=== PATIENT | male | born 1935 | race Caucasian/White ===

== ENCOUNTER 2018-05-01 12:29 | Inpatient (IN) | payer OTHER ==
[~2018-05-01] VITALS: Ht 165.1 cm; Wt 92.1 kg
--- NOTE | ~2018-05-01 | HC ---
[facility] [place] [address] CONSULTATION Name: RUDY MEDEL Room #: 451-P ADM IN M.R.#: [id number] Admission: 05/01/18 Attend Phys: Kanu Gomez MD Discharge: Date of : 33 Report #: [id number] THIS REPORT FOR: //name// CC: Kanu Lantigua DATE OF SERVICE: 05/02/2018 INFECTIOUS DISEASES CONSULTATION REASON FOR CONSULTATION: I was asked to evaluate concerning fever and syncopal episode. HISTORY OF PRESENT ILLNESS: The patient is an 82-year-old admitted to the Emergency Room after a 4-day history of cough and low-grade fever. He had mild pharyngitis symptoms. His son and grandson had similar symptoms before he became ill. His whom he lives with was asymptomatic. He has had temperature up to 102 degrees. While in the outpatient clinic, he had a syncopal episode. No injury. No seizure activity. He presented then to the Emergency Room for further evaluation, where he was noted to have a temperature up to 39.3 degrees. Hemodynamically, he has remained stable. He denies any chest pain. There has been no pleuritic discomfort. No sputum production. No hemoptysis. He has had some sinus congestion. No cardiac dysrhythmia noted in the Emergency Room. Denies any nausea, vomiting or diarrhea. No dysuria or frequency. No rash. No arthritis symptoms. REVIEW OF SYSTEMS: Notes 10-point review otherwise negative. The patient does note that when he becomes overheated, he has had issues with syncope in the past. He is nondiabetic. ALLERGIES: None. MEDICATIONS: As noted on his MAR, including Levaquin. PAST MEDICAL HISTORY: Hyperlipidemia, hypertension, right humerus fracture, herniorrhaphy, tonsillectomy and appendectomy. FAMILY HISTORY: Noncontributory. SOCIAL HISTORY: He is a past smoker. No significant alcohol intake. No HIV risk factors. PHYSICAL EXAMINATION: GENERAL: The patient was alert and cooperative, in no acute distress. He was able to sit up in bed on his own. He was alert and oriented. VITAL SIGNS: Temperature was 39.3, pulse 113, blood pressure of 147/70 and [facility] [address] [place] [address] CONSULTATION Name: RUDY MEDEL Room #: 451-[facility] ..#: [id number] Admission: 05/01/18 Attend Phys: Kanu Gomez MD Discharge: Date of : 33 Report #: [id number] respiratory rate 20. HEENT: Atraumatic. Pupils were equal, round and reactive to light. No scleral icterus. He did have bilateral conjunctivitis. Nasal passages were clear. Mouth was unremarkable, with no mucositis or ulceration. Posterior oropharynx was unremarkable, with no drainage or ulcers. NECK: Supple, with no thyromegaly, mass or JVD. SKIN: Without rash. LYMPH: No peripheral adenopathy palpable. LUNGS: Crackles in the bases, left greater than right. No consolidation. No rub. HEART: Regular, without murmur, gallop or rub. ABDOMEN: Soft, nontender. No hepatosplenomegaly or mass. No guarding or rebound. No CVA tenderness. EXTREMITIES: Without edema or cyanosis. NEUROLOGICAL EXAMINATION: His cranial nerves were intact. Strength in upper and lower extremities was normal. Sensation intact. BACK: Midline with no percussion tenderness. GENITOURINARY: External genitalia unremarkable, with no masses or lesions. Rectal examination not performed. PSYCHIATRIC: Normal. LABORATORY STUDIES: Sodium 135, potassium 3.4, bicarbonate 22 and creatinine 1.1. Liver function tests normal. Lactate 1.6. Troponin less than 0.06. Hemoglobin 14.5, platelet count 202,000 and WBC 15.4 with 65% segs and 6% bands. Urinalysis was unremarkable. Influenza antigen negative. Group A strep swab throughout was negative. Blood culture so far negative. Chest x-ray showed bilateral basilar changes, left greater than right. IMPRESSION: An 82-year-old with underlying history of hypertension presents with fever and a syncopal episode. I suspect community-acquired pneumonia most likely here. His family members were also sick with respiratory tract infection symptoms. Viral etiology would be possible in addition to bacterial organisms. No underlying pulmonary disease by history. He is a past smoker. RECOMMENDATIONS: We will continue with IV antibiotic therapy. Add Tamiflu. Screen MRSA, viral respiratory panel for Strep pneumo and Legionella. Serial chest x-rays. Follow CBC and chemistry. Fluid resuscitation. Continue on cardiac monitoring. <ELECTRONICALLY SIGNED> By: Mesfin Le MD 05/03/18 0826 1540 0123 Mesfin Le MD /nt
--- NOTE | ~2018-05-01 | HC ---
[facility] [place] [address] CONSULTATION Name: RUDY MEDEL Room #: 451-P ADM IN M.R.#: [id number] Admission: 05/01/18 Attend Phys: Kanu Gomez MD Discharge: Date of : 33 Report #: [id number] THIS REPORT FOR: //name// CC: Kanu Lantigua REASON FOR CONSULTATION: Syncope. HISTORY OF PRESENT ILLNESS: The patient is an 82-year-old gentleman with a recent febrile illness with fevers in excess of 102 degrees. He helped is grandson move about a week and a half ago and following this, he has had scratchy throat and nonproductive cough. Recently, he has had high fevers. He has had poor oral intake over the same course of time. He was seen in urgent care with a fever of 102 yesterday, was given Tylenol. His was with him and apparently he had a syncopal episode. He was out for less than a minute or two. No seizure activity. He has a history of syncope in the setting of dehydration in the past. This has occurred in the summer months when he fails to keep up with adequate hydration. When he came he was neurologically intact. He denies chest pain or pressure. He denies heart failure symptoms. No history of palpitations. He had been taking his usual medicines. ALLERGIES: HE IS ALLERGIC TO AVELOX, AMOXICILLIN AND SULFA. MEDICATIONS: Include atenolol 50 mg daily, lisinopril 20 mg daily, aspirin, metformin 500 mg at dinner, simvastatin 20 mg daily, amlodipine 5 mg daily, levothyroxine 75 mcg daily. PAST MEDICAL HISTORY: Medical records have been reviewed and include history of hypertension, appendectomy, tonsillectomy, herniorrhaphy, humerus fracture, vvcc-we-sjujatfu coronary artery disease by prior angiography, nonischemic stress study 04/2017, thumb amputation. SOCIAL HISTORY: He is a former smoker, quit in 1967. FAMILY HISTORY: Unremarkable for premature coronary disease. REVIEW OF SYSTEMS: All systems negative except as that noted above. PHYSICAL EXAMINATION: GENERAL: A pleasant gentleman who is alert and in no distress. VITAL SIGNS: Blood pressure is 147/70, heart rate of 113 and regular, temperature is 102.7 degrees. HEENT: There are neither xanthelasma, subcutaneous xanthomata, oral mucosal or digital cyanosis or kyphoscoliosis present. CHEST: Clear to auscultation and percussion. CARDIAC: Regular rate and rhythm with normal S1, S2. No murmurs or rubs. ABDOMEN: Soft and nontender. [facility] [address] [place] [address] CONSULTATION Name: RUDY MEDEL Room #: [address] [place] [address] IN M.R.#: [id number] Admission: 05/01/18 Attend Phys: Kanu Gomez MD Discharge: Date of : 33 Report #: [id number] EXTREMITIES: Without cyanosis, clubbing or edema. Radial pulses are 2+. NEUROLOGIC: He is alert with a nonfocal exam. LABORATORY DATA: Sodium is 135, potassium 3.4, creatinine 1.1. Troponin 0, proBNP of 199. White count 15,000, hemoglobin 14, hematocrit 42, platelet count 202. Chest x-ray demonstrates mild patchy interstitial infiltrates at the bases. Heart size is normal. EKG, sinus rhythm. IMPRESSION: 1. Febrile illness. 2. Syncope consistent with volume depletion in combination with ongoing antihypertensive regimen. 3. History of hypertension. 4. Diabetes. 5. Dyslipidemia. RECOMMENDATIONS: 1. IV fluid hydration. 2. Screen for influenza, blood cultures obtained. 3. The patient has a history of syncope in the setting of dehydration previously. A primary rhythm abnormality is not suspected. Thank you for asking me to participate in his care. <ELECTRONICALLY SIGNED> By: Cj Zarate MD, FACC 05/03/18 1633 0826 2211 Cj Zarate MD, FACC /nt
--- NOTE | ~2018-05-01 | EKG ---
[address] [address] ELECTROCARDIOGRAM REPORT Name: GIANFRANCORUDY HERNANDEZ Room #: 451-P ADM IN M.R.#: [id number] Admission: 05/01/18 Attend Phys: Kanu Gomez MD Discharge: Date of : 33 Report #: [id number] THIS REPORT FOR: //name// 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
[~2018-05-01 12:29] MED LIST: ASPIRIN EC325 M1 PO; ATENOLOL 100MG100 MG PO; LISINOPRIL20 MG PO; METFORMIN HCL500 MG PO; ZOCOR 20 MG TAB20 M1 PO
[2018-05-01 12:30] VITALS: BP 130/61
[2018-05-01 13:11] LABS: HEMATOCRIT 42.6 % (42.0-52.0); HEMOGLOBIN 14.8 gm/dL (14.0-18.0); MCH 33.3 pg (26.0-34.0); MCHC 34.7 g/dL (28.0-37.0); MCV 95.9 fL (80.0-100.0); PLATELET COUNT 210 thou/uL (150-400); RBC 4.45 mil/uL (4.50-6.00); RDW 12.8 % (10.5-14.5); WBC 15.5 thou/uL (4.0-11.0)
[2018-05-01 13:16] LABS: ANION GAP 11 mmol/L (7-16); BUN 19 mg/dL (7-18); CHLORIDE 98 mmol/L (98-107); CO2 23 mmol/L (21-32); CREATININE 1.5 mg/dL (0.7-1.3); GLUCOSE 164 mg/dL (74-106); POTASSIUM 4.4 mmol/L (3.5-5.1); SODIUM 132 mmol/L (136-145)
[2018-05-01 13:24] LABS: ALBUMIN 3.2 g/dL (3.4-5.0); MAGNESIUM 1.8 mg/dL (1.8-2.4); SGOT 31 U/L (15-37); SGPT 30 U/L (30-65); TOTAL BILIRUBIN 1.3 mg/dL (<0.1-1.0); TOTAL PROTEIN 7.4 g/dL (6.4-8.2); TROPONIN-I <0.06 ng/mL (<0.06)
[2018-05-01 13:29] LABS: PLATELET ESTIMATE NORMAL
[2018-05-01] MEDS ORDERED: FISH OIL 1,001000 M2 PO (13:43)
[2018-05-01] MEDS ORDERED: NORVASC5 MG PO (13:43)
[2018-05-01] MEDS ORDERED: LEVOXYL75 MCG PO (13:44)
[2018-05-01 15:30] LABS: URINE BILIRUBIN NEGATIVE (Negative); URINE BLOOD NEGATIVE (Negative); URINE CLARITY CLEAR; URINE COLOR YELLOW; URINE GLUCOSE-RANDOM* NEGATIVE (Negative); URINE KETONES NEGATIVE (Negative); URINE LEUKOCYTES-REFLEX NEGATIVE (Negative); URINE NITRITE-REFLEX NEGATIVE (Negative); URINE PROTEIN (DIPSTICK) 1+ (Negative); URINE SPECIFIC GRAVITY 1.025 (1.005-1.035)
[2018-05-01 15:34] VITALS: BP 130/97
[2018-05-01 15:39] LABS: HYALINE CASTS 0-3 Few /LPF (None Seen); SQUAMOUS 0-3 Few /LPF (0-3)
[2018-05-01 15:40] LABS: BACTERIA-REFLEX 1-9 Few /HPF (None Seen); CRYSTALS None Seen /LPF (None Seen); URINE RBC None Seen /HPF (0-2); URINE WBC-REFLEX 0-5 Rare /HPF (0-5)
[2018-05-01 16:43] VITALS: BP 157/82
[2018-05-01 17:10] VITALS: BP 177/91
[2018-05-01 19:24] VITALS: BP 147/70
[2018-05-02 05:28] LABS: HEMATOCRIT 42.2 % (42.0-52.0); HEMOGLOBIN 14.5 gm/dL (14.0-18.0); MCH 32.7 pg (26.0-34.0); MCHC 34.3 g/dL (28.0-37.0); MCV 95.6 fL (80.0-100.0); RBC 4.41 mil/uL (4.50-6.00); RDW 12.9 % (10.5-14.5); WBC 15.4 thou/uL (4.0-11.0)
[2018-05-02 05:45] LABS: ALBUMIN 2.8 g/dL (3.4-5.0); ANION GAP 12 mmol/L (7-16); BUN 13 mg/dL (7-18); CALCIUM 8.5 mg/dL (8.5-10.1); CHLORIDE 101 mmol/L (98-107); CO2 22 mmol/L (21-32); CREATININE 1.1 mg/dL (0.7-1.3); GLUCOSE 136 mg/dL (74-106); SGOT 35 U/L (15-37); SGPT 31 U/L (30-65); SODIUM 135 mmol/L (136-145); TOTAL BILIRUBIN 1.5 mg/dL (<0.1-1.0); TOTAL PROTEIN 7.2 g/dL (6.4-8.2); TROPONIN-I <0.06 ng/mL (<0.06)
[2018-05-02 05:52] LABS: POTASSIUM 3.4 mmol/L (3.5-5.1)
[2018-05-02 08:00] VITALS: BP 168/82
[2018-05-02 19:18] VITALS: BP 154/67
[2018-05-03 07:28] VITALS: BP 159/73
[2018-05-03 17:38] VITALS: BP 165/80
[2018-05-03 19:30] VITALS: BP 101/69
[2018-05-04 06:00] LABS: ABSOLUTE NEUTROPHILS 10.9 thou/uL (1.4-8.2); BASOPHILS 0.7 % (0.0-2.0); EOSINOPHILS 1.4 % (0.0-3.0); HEMATOCRIT 40.3 % (42.0-52.0); LYMPHOCYTES 10.9 % (24.0-44.0); MCH 32.7 pg (26.0-34.0); MCHC 34.7 g/dL (28.0-37.0); MCV 94.3 fL (80.0-100.0); MONOCYTES 11.9 % (1.0-8.0); PLATELET COUNT 244 thou/uL (150-400); POLYS 75.1 % (36.0-66.0); RBC 4.27 mil/uL (4.50-6.00); RDW 12.5 % (10.5-14.5); WBC 14.4 thou/uL (4.0-11.0)
[2018-05-04 06:09] LABS: ALBUMIN 2.5 g/dL (3.4-5.0); CALCIUM 8.4 mg/dL (8.5-10.1); CREATININE 0.9 mg/dL (0.7-1.3); MAGNESIUM 1.7 mg/dL (1.8-2.4); POTASSIUM 3.5 mmol/L (3.5-5.1); TOTAL PROTEIN 7.1 g/dL (6.4-8.2)
[2018-05-04 07:45] VITALS: BP 145/62
[2018-05-04 16:04] VITALS: BP 148/61
[2018-05-04 19:24] VITALS: BP 151/65
[2018-05-05 03:26] VITALS: BP 144/78
[2018-05-05 05:44] LABS: ABSOLUTE NEUTROPHILS 9.3 thou/uL (1.4-8.2); BASOPHILS 1.1 % (0.0-2.0); EOSINOPHILS 3.6 % (0.0-3.0); HEMOGLOBIN 14.1 gm/dL (14.0-18.0); LYMPHOCYTES 13.8 % (24.0-44.0); MCH 32.4 pg (26.0-34.0); MCHC 34.3 g/dL (28.0-37.0); MCV 94.4 fL (80.0-100.0); MONOCYTES 11.8 % (1.0-8.0); PLATELET COUNT 293 thou/uL (150-400); POLYS 69.7 % (36.0-66.0); RBC 4.34 mil/uL (4.50-6.00); RDW 13.1 % (10.5-14.5); WBC 13.3 thou/uL (4.0-11.0)
[2018-05-05 05:53] LABS: CALCIUM 8.6 mg/dL (8.5-10.1); MAGNESIUM 1.8 mg/dL (1.8-2.4); POTASSIUM 3.6 mmol/L (3.5-5.1)
[2018-05-05 07:56] VITALS: BP 119/48
[2018-05-05 12:45] VITALS: BP 120/56
[2018-05-05 19:26] VITALS: BP 112/47
[2018-05-06 00:11] LABS: ADENOVIRUS Negative (Negative); INFLUENZA A Negative (Negative); INFLUENZA B Negative (Negative); METAPNEUMOVIRUS Negative (Negative); PARAINFLUENZA 1 Negative (Negative); PARAINFLUENZA 2 Negative (Negative); PARAINFLUENZA 3 Negative (Negative); RHINOVIRUS Negative (Negative); RSV A Negative (Negative); RSV B Negative (Negative)
[2018-05-06 05:39] LABS: ABSOLUTE NEUTROPHILS 10.1 thou/uL (1.4-8.2); BASOPHILS 0.5 % (0.0-2.0); EOSINOPHILS 3.4 % (0.0-3.0); HEMATOCRIT 40.2 % (42.0-52.0); HEMOGLOBIN 13.8 gm/dL (14.0-18.0); LYMPHOCYTES 13.2 % (24.0-44.0); MCH 32.2 pg (26.0-34.0); MCHC 34.3 g/dL (28.0-37.0); MCV 93.9 fL (80.0-100.0); MONOCYTES 10.1 % (1.0-8.0); PLATELET COUNT 324 thou/uL (150-400); POLYS 72.8 % (36.0-66.0); RBC 4.28 mil/uL (4.50-6.00); RDW 12.8 % (10.5-14.5); WBC 13.9 thou/uL (4.0-11.0)
[2018-05-06 05:48] LABS: CALCIUM 8.7 mg/dL (8.5-10.1); POTASSIUM 3.5 mmol/L (3.5-5.1)
[2018-05-06 07:43] VITALS: BP 131/72
[2018-05-06] MEDS ORDERED: MUCINEX DM ER1 EAC1 PO (13:06)
[2018-05-06] MEDS ORDERED: TRIMETHOPRIM /P10 M1 OPHTHALMIC (13:06)
[2018-05-06] MEDS ORDERED: LEVAQUIN 750 M750 MG PO (13:06)
[2018-05-06] MEDS ORDERED: TAMIFLU30 MG PO (13:08)
[2018-05-06] MEDS ORDERED: SULFACETAMIDE 115 M1 OPHTHALMIC (13:09)
[2018-05-06 14:26] VITALS: BP 131/72
== END 2018-05-06 16:46 | disposition home or self-care (01) | DRG 871 ==
LOC: ER 12:29 → 4W 15:43 → EROBS 15:43 → 4W 16:45 → ENTRNSPT 05-06 15:54 → 4W 05-06 16:46
PROVIDERS: Emergency Medicine; Family Medicine; Hospitalist; Nurse Practitioner Family; Specialist
DX: A41.9 Sepsis, unspecified organism (principal); J18.9 Pneumonia, unspecified organism; N17.9 Acute kidney failure, unspecified; E87.1 Hypo-osmolality and hyponatremia; E46 Unspecified protein-calorie malnutrition; E78.5 Hyperlipidemia, unspecified; J20.9 Acute bronchitis, unspecified; H10.9 Unspecified conjunctivitis; N18.9 Chronic kidney disease, unspecified; I25.10 Atherosclerotic heart disease of native coronary artery without angina pectoris; E86.9 Volume depletion, unspecified; E86.0 Dehydration; Z66 Do not resuscitate; D72.829 Elevated white blood cell count, unspecified; E87.6 Hypokalemia; E83.42 Hypomagnesemia; E11.22 Type 2 diabetes mellitus with diabetic chronic kidney disease; I12.9 Hypertensive chronic kidney disease with stage 1 through stage 4 chronic kidney disease, or unspecified chronic kidney disease; Z90.49 Acquired absence of other specified parts of digestive tract; Z88.1 Allergy status to other antibiotic agents; Z88.2 Allergy status to sulfonamides; Z88.8 Allergy status to other drugs, medicaments and biological substances; Z87.81 Personal history of (healed) traumatic fracture; Z87.891 Personal history of nicotine dependence; Z82.49 Family history of ischemic heart disease and other diseases of the circulatory system; Z68.33 Body mass index [BMI] 33.0-33.9, adult
CPT/HCPCS: 10045

== ENCOUNTER → 2018-05-25 | Outpatient (CLI) | payer OTHER ==
[~2018-05-25] MED LIST changes: +FISH OIL 1,001000 M2 PO; +LEVAQUIN 750 M750 MG PO; +LEVOXYL75 MCG PO; +MUCINEX DM ER1 EAC1 PO; +NORVASC5 MG PO; +SULFACETAMIDE 115 M1 OPHTHALMIC; +TAMIFLU30 MG PO; +TRIMETHOPRIM /P10 M1 OPHTHALMIC
== END ==
LOC: RAD 10:01
DX: J98.4 Other disorders of lung (principal); M47.814 Spondylosis without myelopathy or radiculopathy, thoracic region

== ENCOUNTER → 2019-11-21 | Outpatient (CLI) | payer OTHER | LOC: SJCVCIMAG 07:42 | DX: R00.1 Bradycardia, unspecified (principal); I25.10 Atherosclerotic heart disease of native coronary artery without angina pectoris; I65.23 Occlusion and stenosis of bilateral carotid arteries; I10 Essential (primary) hypertension; E11.9 Type 2 diabetes mellitus without complications ==

== ENCOUNTER → 2020-05-23 | Outpatient (CLI) | payer OTHER | LOC: SJCVCIMAG 08:18 | PROVIDERS: ATTEND Internal Medicine | DX: I25.10 Atherosclerotic heart disease of native coronary artery without angina pectoris (principal); R00.1 Bradycardia, unspecified; I65.23 Occlusion and stenosis of bilateral carotid arteries; E78.5 Hyperlipidemia, unspecified; I10 Essential (primary) hypertension; E11.9 Type 2 diabetes mellitus without complications; Z79.899 Other long term (current) drug therapy; Z87.891 Personal history of nicotine dependence ==

== ENCOUNTER → 2020-11-21 | Outpatient (CLI) | payer OTHER | LOC: SJCVCIMAG 07:47 | PROVIDERS: ATTEND Internal Medicine | DX: R94.31 Abnormal electrocardiogram [ECG] [EKG] (principal); I65.23 Occlusion and stenosis of bilateral carotid arteries; I25.10 Atherosclerotic heart disease of native coronary artery without angina pectoris; E78.5 Hyperlipidemia, unspecified; I10 Essential (primary) hypertension; E11.9 Type 2 diabetes mellitus without complications; E03.9 Hypothyroidism, unspecified; M19.90 Unspecified osteoarthritis, unspecified site; Z79.899 Other long term (current) drug therapy; Z87.891 Personal history of nicotine dependence; Z88.1 Allergy status to other antibiotic agents; Z88.2 Allergy status to sulfonamides; Z88.8 Allergy status to other drugs, medicaments and biological substances ==

== ENCOUNTER 2020-11-23 13:37 | Inpatient (IN) | payer OTHER ==
[~2020-11-23] VITALS: Ht 165.1 cm; Wt 88.5 kg
[2020-11-23 13:54] LABS: BASOPHILS 0.5 % (0.0-2.0); EOSINOPHILS 2.3 % (0.0-3.0); HEMATOCRIT 41.4 % (42.0-52.0); HEMOGLOBIN 14.1 gm/dL (14.0-18.0); LYMPHOCYTES 17.4 % (24.0-44.0); MCH 33.3 pg (26.0-34.0); MCHC 34.1 g/dL (28.0-37.0); MCV 97.8 fL (80.0-100.0); MONOCYTES 12.1 % (1.0-8.0); PLATELET COUNT 187 thou/uL (150-400); POLYS 67.7 % (36.0-66.0); RBC 4.24 mil/uL (4.50-6.00); RDW 12.8 % (10.5-14.5); WBC 14.8 thou/uL (4.0-11.0)
[2020-11-23 14:03] LABS: ANION GAP 13 mmol/L (7-16); BUN 20 mg/dL (7-18); CALCIUM 9.1 mg/dL (8.5-10.1); CHLORIDE 101 mmol/L (98-107); CO2 27 mmol/L (21-32); CREATININE 1.3 mg/dL (0.7-1.3); GLUCOSE 133 mg/dL (74-106); POTASSIUM 4.2 mmol/L (3.5-5.1); SODIUM 141 mmol/L (136-145)
[2020-11-23 14:11] LABS: TROPONIN-I <0.06 ng/mL (<0.06)
[2020-11-23 14:18] LABS: URINE BILIRUBIN NEGATIVE (Negative); URINE BLOOD 1+ (Negative); URINE CLARITY CLEAR; URINE COLOR YELLOW; URINE GLUCOSE-RANDOM* NEGATIVE (Negative); URINE KETONES NEGATIVE (Negative); URINE NITRITE-REFLEX NEGATIVE (Negative); URINE PROTEIN (DIPSTICK) NEGATIVE (Negative)
[2020-11-23 14:22] LABS: URINE LEUKOCYTES-REFLEX 1+ (Negative)
[2020-11-23 14:31] LABS: SQUAMOUS None Seen /LPF (0-3); URINE RBC 1-2 Rare /HPF (NONE SEEN); URINE WBC-REFLEX 6-15 Few /HPF (0-5)
[2020-11-23 14:32] LABS: CASTS None Seen /LPF (None Seen); CRYSTALS None Seen /LPF (None Seen)
[2020-11-23 18:12] VITALS: BP 142/65
[2020-11-23 18:26] VITALS: BP 142/66
[2020-11-23 19:02] VITALS: BP 167/69
[2020-11-23 23:50] VITALS: BP 147/86
[2020-11-24] VITALS (8 sets, daily range): BP systolic 144–187; BP diastolic 59–94
[2020-11-24 05:36] LABS: ABSOLUTE NEUTROPHILS 7.6 thou/uL (1.4-8.2); BASOPHILS 0.5 % (0.0-2.0); EOSINOPHILS 1.4 % (0.0-3.0); HEMATOCRIT 41.7 % (42.0-52.0); LYMPHOCYTES 18.1 % (24.0-44.0); MCH 32.8 pg (26.0-34.0); MCHC 33.5 g/dL (28.0-37.0); MCV 98.1 fL (80.0-100.0); PLATELET COUNT 194 thou/uL (150-400); RBC 4.25 mil/uL (4.50-6.00); RDW 13.2 % (10.5-14.5); WBC 11.7 thou/uL (4.0-11.0)
[2020-11-24 05:42] LABS: ALBUMIN 3.4 g/dL (3.4-5.0); CALCIUM 8.9 mg/dL (8.5-10.1); MAGNESIUM 1.7 mg/dL (1.8-2.4); PHOSPHORUS 2.4 mg/dL (2.6-4.7); POTASSIUM 3.8 mmol/L (3.5-5.1); TOTAL BILIRUBIN 0.9 mg/dL (0.2-1.0); TOTAL PROTEIN 7.7 g/dL (6.4-8.2)
--- NOTE | 2020-11-24 09:05 | EKG ---
[address] [address] ELECTROCARDIOGRAM REPORT Name: RUDY MEDEL Room #: 215-P ADM IN M.R.#: [id number] Admission: 11/23/20 Attend Phys: Brenda Gomez MD Discharge: Date of : 33 Report #: [id number] [facility] ED Test Date: 2020-11-23 Test Time: 13:39:13 Pat Name: RUDY MEDEL Department: Room: [facility] Gender: M Tier Over: RONY : 1935 Requested By: Vj Ramirez Order Number: [id number] MD: Jamison Caballero Measurements Intervals [place] Rate: 70 P: 17 NE: 182 QRS: 2 QRSD: 89 T: 34 QT: 392 QTc: 423 Interpretive Statements Sinus rhythm Compared to ECG 05/01/2018 12:36:43 No significant changes Electronically Signed On 11-24-2020 9:04:49 CDT by Jamison Caballero [email or web address] <ELECTRONICALLY SIGNED> By: Jamison Caballero MD, [facility] 11/24/20 0904 1339 1339 Jamison Caballero MD, FACC /EPI
[2020-11-25 04:29] VITALS: BP 163/80
[2020-11-25 07:11] LABS: ABSOLUTE NEUTROPHILS 6.3 thou/uL (1.4-8.2); BASOPHILS 0.7 % (0.0-2.0); EOSINOPHILS 3.9 % (0.0-3.0); HEMATOCRIT 42.3 % (42.0-52.0); HEMOGLOBIN 14.5 gm/dL (14.0-18.0); LYMPHOCYTES 19.1 % (24.0-44.0); MCH 33.2 pg (26.0-34.0); MCHC 34.2 g/dL (28.0-37.0); MCV 97.1 fL (80.0-100.0); MONOCYTES 13.8 % (1.0-8.0); PLATELET COUNT 227 thou/uL (150-400); POLYS 62.5 % (36.0-66.0); RBC 4.36 mil/uL (4.50-6.00); RDW 13.1 % (10.5-14.5)
[2020-11-25 07:26] LABS: CALCIUM 9.2 mg/dL (8.5-10.1); PHOSPHORUS 2.7 mg/dL (2.6-4.7); POTASSIUM 3.8 mmol/L (3.5-5.1)
[2020-11-25 07:45] VITALS: BP 147/74; BP 159/81
[2020-11-25 07:48] VITALS: BP 154/69
[2020-11-25 11:35] VITALS: BP 135/64
[2020-11-25 15:35] VITALS: BP 159/57
[2020-11-25 19:28] VITALS: BP 151/65
[2020-11-26 03:41] VITALS: BP 149/74
[2020-11-26 09:27] VITALS: BP 137/63
[2020-11-26 12:00] VITALS: BP 145/77
[2020-11-26] MEDS ORDERED: FOLIC ACID1 MG PO (12:02)
[2020-11-26] MEDS ORDERED: B-12500 MCG PO (12:02)
[2020-11-26] MEDS ORDERED: PEPCID20 MG PO (12:02)
[2020-11-26] MEDS ORDERED: CIPROFLOXIN HC2.5 M1 OPHTHALMIC (12:02)
--- NOTE | 2020-11-26 12:29 | 2DMMODE ---
[facility] [place] [address] 2 D/M-MODE ECHOCARDIOGRAM Name: RUDY MEDEL Room #: 215-P ADM IN M.R.#: [id number] Admission: 11/23/20 Attend Phys: Brenda Gomez MD Discharge: Date of : 33 Report #: [id number] THIS REPORT FOR: cc: Oscar Lantigua MD, Rene P. MD Lundgren,Cj Lemos MD [facility] ~ APPROVED REPORT Study performed: 11/26/2020 11:32:12 EXAM: Comprehensive 2D, Doppler, and color-flow Echocardiogram Patient Location: Bedside Room #: 215 Status: routine BSA: 1.96 HR: 65 bpm BP: 137/63 mmHg Rhythm: NSR Other Information Study Quality: Good Indications Syncope. Hx: CAD, PVD, HTN, DM, HLP. 2D Dimensions RVDd: 37.26 mm IVSd: 11.54 (7-11mm) LVOT Diam: 22.04 (18-24mm) LVDd: 43.80 mm PWd: 10.59 (7-11mm) Ascending Ao: 37.30 (22-36mm) LVDs: 25.99 (25-40mm) Left Atrium: 39.02 (27-40mm) Aortic Root: 36.02 mm Volumes Left Atrial Volume (Systole) Single Plane 4CH: 52.30 mL Single Plane 2CH: 51.42 mL LA ESV Index: 29.00 mL/m2 Aortic Valve AoV Peak Angel.: 1.45 m/s AO Peak Gr.: 9.47 mmHg LVOT Max P.68 mmHg LVOT Max V: 0.96 m/s [facility] [address] [place] [address] 2 D/M-MODE ECHOCARDIOGRAM Name: RUDY MEDELSON Room #: [facility] IN [facility].#: [id number] Admission: 11/23/20 Attend Phys: Brenda Gomez, Discharge: Date of : 33 Report #: [id number] Vmax: 2.53 cm2 Mitral Valve E/A Ratio: 0.6 MV Decel. Time: 308.19 ms MV E Max Angel.: 0.63 m/s MV A Angel.: 1.10 m/s MV PHT: 89.37 ms IVRT: 106.11 ms Pulmonary Valve PV Peak Angel.: 0.96 m/s PV Peak Gr.: 3.66 mmHg Pulmonary Vein P Vein S: 0.45 m/s P Vein A: 0.29 m/s P Vein D: 0.27 m/s P Vein A Dur.: 129.2 msec P Vein S/D Ratio: 1.67 Tricuspid Valve TR Peak Angel.: 2.22 m/s RAP Estimate: 5.00 mmHg TR Peak Gr.: 20.00 mmHg PA Pressure: 25.00 mmHg Left Ventricle The left ventricle is normal size. There is normal LV segmental wall motion. Mild concentric left ventricular hypertrophy. Left ventricular systolic function is normal. LVEF is 60-65%. Mild diastolic dysfunction Right Ventricle The right ventricle is normal size. The right ventricular systolic function is normal. Atria The left atrium size is normal. The right atrium size is normal. Aortic Valve The aortic valve is moderately calcified, trileaflet. No aortic regurgitation is present. There is no aortic valvular stenosis. Mitral Valve The mitral valve is normal in structure. There is no mitral valve regurgitation noted. No evidence of mitral valve stenosis. [facility] [address] [place] [address] 2 D/M-MODE ECHOCARDIOGRAM Name: RUDY MEDEL Room #: 215-P [facility] IN .R.#: [id number] Admission: 11/23/20 Attend Phys: Brenda Gomez, Discharge: Date of : 33 Report #: [id number] Tricuspid Valve The tricuspid valve is normal in structure. Trace tricuspid regurgitation. Estimated PAP is 25mmHg. Pulmonic Valve The pulmonary valve is normal in structure. Trace pulmonic regurgitation. Great Vessels The aortic root is normal in size. The ascending aorta is normal in size. IVC is not well visualized. Pericardium There is no pericardial effusion. <Conclusion> Left ventricular systolic function is normal. There is normal LV segmental wall motion. LVEF is 60-65%. Mild diastolic dysfunction The aortic valve is moderately calcified, trileaflet. No aortic regurgitation or stenosis. The mitral valve is normal in structure. No mitral valve regurgitation Trace tricuspid regurgitation. Estimated pulmonary artery pressure of 25mmHg. There is no pericardial effusion. <ELECTRONICALLY SIGNED> By: Cj Zarate MD, [facility] 11/26/20 1229 1229 1229 Cj Zarate MD, FACC /INF
[2020-11-26 13:00] VITALS: BP 137/63
[2020-11-26] MEDS ORDERED: AUGMENTIN 875-1 EACH PO (13:40)
[2020-11-26 21:06] LABS: SYPHILIS AB Non Reactive (Non Reactive)
--- NOTE | 2020-12-05 17:58 | EEG ---
[facility] [address] [address] ELECTROENCEPHALOGRAM Name: RUDY MEDEL Room #: 215-P [facility] IN M.R.#: [id number] Admission: 11/23/20 Attend Phys: Brenda Gomez MD Discharge: 11/26/20 Date of : 33 Report #: [id number] THIS REPORT FOR: //name// DOC #: [id number] Clemente Figueroa MD DATE OF SERVICE: 11/25/2020 This patient is admitted with an episode of syncope. EEG is being done to evaluate the possibility of seizure. EEG was done by placing the electrode by standard 10-20 system of electrode placement. Both referential and sequential montages were used for recording. Background activity in this patient's EEG is about 8-9 Hz and 30 microvolt. There is a symmetrical activity. The patient became drowsy and that is associated with bilateral slowing and vertex sharp waves. Throughout the record, no active epileptiform activity was noticed. IMPRESSION: This patient's EEG is somewhat slow, which is a nonspecific finding and can occur with encephalopathy, effect of psychotropic medication, dementia, etc. No active epileptiform activity was noticed during this record. Thank you very much for this referral. Clemente Figueroa MD PK/CHI <ELECTRONICALLY SIGNED> By: Clemente Figueroa MD 12/05/20 1758 1331 1430 Clemente Figueroa MD /juan
== END 2020-11-26 14:00 | disposition home or self-care (01) | DRG 260 ==
LOC: ER 13:37 → EROBS 16:31 → 2N 16:31
PROVIDERS: Nurse Practitioner; Psychiatry & Neurology Neurology; ADMIT Internal Medicine; ATTEND Internal Medicine
PROC: 0JH602Z Insertion of Monitoring Device into Chest Subcutaneous Tissue and Fascia, Open Approach (ICD-10-PCS; principal; 2020-11-26)
DX: I49.9 Cardiac arrhythmia, unspecified (principal); J18.9 Pneumonia, unspecified organism; N39.0 Urinary tract infection, site not specified; R65.10 Systemic inflammatory response syndrome (SIRS) of non-infectious origin without acute organ dysfunction; F03.90 Unspecified dementia, unspecified severity, without behavioral disturbance, psychotic disturbance, mood disturbance, and anxiety; E78.5 Hyperlipidemia, unspecified; E11.22 Type 2 diabetes mellitus with diabetic chronic kidney disease; I12.9 Hypertensive chronic kidney disease with stage 1 through stage 4 chronic kidney disease, or unspecified chronic kidney disease; N18.30 Chronic kidney disease, stage 3 unspecified; I25.10 Atherosclerotic heart disease of native coronary artery without angina pectoris; M19.041 Primary osteoarthritis, right hand; I65.23 Occlusion and stenosis of bilateral carotid arteries; M47.812 Spondylosis without myelopathy or radiculopathy, cervical region; Z66 Do not resuscitate; Z90.49 Acquired absence of other specified parts of digestive tract; Z79.82 Long term (current) use of aspirin; Z79.84 Long term (current) use of oral hypoglycemic drugs; Z87.891 Personal history of nicotine dependence; Z79.899 Other long term (current) drug therapy
CPT/HCPCS: 10081

== ENCOUNTER → 2020-12-14 | Emergency (ER) | payer OTHER ==
[~2020-12-14] VITALS: Ht 165.1 cm; Wt 86.2 kg
[~2020-12-14] MED LIST changes: +AUGMENTIN 875-1 EACH PO; +B-12500 MCG PO; +CIPROFLOXIN HC2.5 M1 OPHTHALMIC; +FOLIC ACID1 MG PO; +PEPCID20 MG PO
[2020-12-14 22:03] LABS: ABSOLUTE NEUTROPHILS 9.1 thou/uL (1.4-8.2); BASOPHILS 0.8 % (0.0-2.0); HEMATOCRIT 39.4 % (42.0-52.0); HEMOGLOBIN 13.2 gm/dL (14.0-18.0); LYMPHOCYTES 14.5 % (24.0-44.0); MCH 32.4 pg (26.0-34.0); MCHC 33.5 g/dL (28.0-37.0); MCV 96.6 fL (80.0-100.0); MONOCYTES 14.3 % (1.0-8.0); PLATELET COUNT 237 thou/uL (150-400); POLYS 68.4 % (36.0-66.0); RBC 4.08 mil/uL (4.50-6.00); RDW 12.9 % (10.5-14.5); WBC 13.2 thou/uL (4.0-11.0)
[2020-12-14 22:09] LABS: ANION GAP 12 mmol/L (7-16); BUN 23 mg/dL (7-18); CALCIUM 8.8 mg/dL (8.5-10.1); CHLORIDE 100 mmol/L (98-107); CO2 24 mmol/L (21-32); CREATININE 1.5 mg/dL (0.7-1.3); GLUCOSE 166 mg/dL (74-106); POTASSIUM 3.9 mmol/L (3.5-5.1); SODIUM 136 mmol/L (136-145)
[2020-12-14 22:23] LABS: ALBUMIN 3.2 g/dL (3.4-5.0); SGOT 20 U/L (15-37); SGPT 22 U/L (30-65); TOTAL PROTEIN 7.4 g/dL (6.4-8.2); TROPONIN-I <0.06 ng/mL (<0.06)
[2020-12-14 22:36] LABS: URINE BILIRUBIN NEGATIVE (Negative); URINE BLOOD NEGATIVE (Negative); URINE CLARITY CLEAR; URINE COLOR YELLOW; URINE GLUCOSE-RANDOM* NEGATIVE (Negative); URINE KETONES NEGATIVE (Negative); URINE NITRITE-REFLEX NEGATIVE (Negative); URINE PROTEIN (DIPSTICK) NEGATIVE (Negative)
[2020-12-14 22:47] LABS: URINE LEUKOCYTES-REFLEX 2+ (Negative)
[2020-12-14 22:49] LABS: BACTERIA-REFLEX 1-9 Few /HPF (None Seen); CASTS None Seen /LPF (None Seen); MUCUS 0-3 Light strn/LPF (None Seen); SQUAMOUS 0-3 Few /LPF (0-3); URINE RBC 3-10 Few /HPF (NONE SEEN)
[2020-12-14 22:50] LABS: CRYSTALS None Seen /LPF (None Seen); URINE WBC-REFLEX 6-15 Few /HPF (0-5)
[2020-12-14 23:40] VITALS: BP 134/65
== END | disposition home or self-care (01) ==
LOC: ER
PROVIDERS: Emergency Medicine
DX: E86.0 Dehydration (principal); N39.0 Urinary tract infection, site not specified; R05 Cough; R50.9 Fever, unspecified; J84.10 Pulmonary fibrosis, unspecified; I10 Essential (primary) hypertension; E11.9 Type 2 diabetes mellitus without complications; Z79.899 Other long term (current) drug therapy; Z79.82 Long term (current) use of aspirin

== ENCOUNTER → 2020-12-24 | Outpatient (CLI) | payer OTHER ==
[~2020-12-24] MED LIST changes: +PULMICORT0.5 MG/21 INH
== END ==
LOC: SJCVC 11:02
PROVIDERS: ATTEND Internal Medicine
DX: R94.31 Abnormal electrocardiogram [ECG] [EKG] (principal); R00.1 Bradycardia, unspecified; I25.10 Atherosclerotic heart disease of native coronary artery without angina pectoris; I65.23 Occlusion and stenosis of bilateral carotid arteries; E78.5 Hyperlipidemia, unspecified; I10 Essential (primary) hypertension; E11.9 Type 2 diabetes mellitus without complications; Z90.49 Acquired absence of other specified parts of digestive tract; Z88.2 Allergy status to sulfonamides; Z88.8 Allergy status to other drugs, medicaments and biological substances; Z79.82 Long term (current) use of aspirin; Z79.84 Long term (current) use of oral hypoglycemic drugs; Z79.899 Other long term (current) drug therapy; Z87.891 Personal history of nicotine dependence

== ENCOUNTER 2020-12-29 17:08 | Inpatient (IN) | payer OTHER ==
[~2020-12-29] VITALS: Ht 152.4 cm; Wt 88.9 kg
--- NOTE | ~2020-12-29 | HC ---
[facility] [address] [address] CONSULTATION Name: RUDY MEDEL Room #: 360-P [facility] IN M.R.#: [id number] Admission: 12/29/20 Attend Phys: Jensen Manjarrez MD Discharge: 12/31/20 Date of : 33 Report #: [id number] THIS REPORT FOR: cc: Oscar Lantigua MD, Rene P. MD Smithson,Gene Hernandez MD ~ DOC #: [id number] Gene De Leon MD DATE OF SERVICE: 12/31/2020 HISTORY OF PRESENT ILLNESS: The patient is an 85-year-old white male who was admitted with fever, cough, diagnosed with sepsis, urinary tract infection, acute renal insufficiency superimposed on chronic kidney disease. He has been given IV fluids, IV Zosyn, Solu-Medrol. He notes he is feeling better. We are seeing him in rehabilitation medicine consultation. PAST MEDICAL HISTORY: Includes a recent urinary tract infection, syncopal episode for which a loop recorder was placed in November. He has a history of hypertension, diabetes mellitus, degenerative arthritis and there is a note of some dementia. HABITS: Past tobacco use. MEDICATIONS: Please see the full medication list as noted. ALLERGIES: No known drug allergies. SOCIAL HISTORY: Lives in a house with his , 4 long steps in, did not utilize any assistive device, premorbidly was a community ambulator, walking 3 miles a day. REVIEW OF SYSTEMS: From current complaints of chest pain, shortness of breath or abdominal discomfort. PHYSICAL EXAMINATION: GENERAL: An 85-year-old white male in no obvious distress. He is currently on room air. VITAL SIGNS: Temperature 36.5, pulse 73, respirations 18, blood pressure 151/71. NEUROLOGIC: Alert, oriented. Will follow basic 1-step commands. Facies are symmetric. Functional range of motion of both upper extremities with strength grade 4-/5. DTRs are trace to 1. Lower extremities, no focal calf swelling. Functional range of motion strength is grade 4- to 3+/5. DTRs are trace to 1. He is doing well with his functional mobility with supervision for sit to stand and is ambulating 500 feet supervision without an assistive device. Physical therapy has actually discharged him. [address] [address] CONSULTATION Name: RUDY MEDEL Room #: 360-[facility] IN [facility].#: [id number] Admission: 12/29/20 Attend Phys: Jensen Manjarrez MD Discharge: 12/31/20 Date of : 33 Report #: [id number] ASSESSMENT: An 85-year-old white male with the following problem list: 1. Acute urinary tract infection. 2. Acute on chronic kidney disease stage II. 3. Chronic cough, early sepsis with lactic acidosis. 4. Hypertension with hyperlipidemia. 5. Diabetes mellitus type 2. 6. History of dementia. PLAN: The patient is too high level to warrant an acute [address] [place] [address] inpatient rehabilitation stay. He is ambulating 500 feet supervision without an assistive device. He has already been discharged from physical therapy. Would anticipate he would be able to return directly home when medically cleared. Thank you for asking us to assist in this patient's care. MD MELODY Locke/CAMERON By: 1049 2100 Gene De Leon MD /nt
[~2020-12-29 17:08] MED LIST changes: -PULMICORT0.5 MG/21 INH
[2020-12-29 17:18] VITALS: BP 148/64
[2020-12-29 17:56] LABS: ABSOLUTE NEUTROPHILS 15.3 thou/uL (1.4-8.2); EOSINOPHILS 1.1 % (0.0-3.0); HEMATOCRIT 42.2 % (42.0-52.0); HEMOGLOBIN 14.2 gm/dL (14.0-18.0); LYMPHOCYTES 10.8 % (24.0-44.0); MCH 32.3 pg (26.0-34.0); MCHC 33.6 g/dL (28.0-37.0); MCV 96.1 fL (80.0-100.0); MONOCYTES 10.6 % (1.0-8.0); PLATELET COUNT 229 thou/uL (150-400); POLYS 76.5 % (36.0-66.0); RBC 4.39 mil/uL (4.50-6.00); RDW 12.9 % (10.5-14.5)
[2020-12-29 18:03] LABS: ANION GAP 9 mmol/L (7-16); BUN 22 mg/dL (7-18); CALCIUM 9.1 mg/dL (8.5-10.1); CHLORIDE 101 mmol/L (98-107); CO2 26 mmol/L (21-32); CREATININE 1.5 mg/dL (0.7-1.3); GLUCOSE 182 mg/dL (74-106); POTASSIUM 4.2 mmol/L (3.5-5.1); SODIUM 136 mmol/L (136-145)
[2020-12-29 18:12] LABS: ALBUMIN 3.6 g/dL (3.4-5.0); SGOT 19 U/L (15-37); SGPT 20 U/L (16-63); TOTAL BILIRUBIN 0.7 mg/dL (0.2-1.0); TOTAL PROTEIN 7.6 g/dL (6.4-8.2); TROPONIN-I <0.06 ng/mL (<0.06)
[2020-12-29 18:50] LABS: URINE BILIRUBIN NEGATIVE (Negative); URINE BLOOD NEGATIVE (Negative); URINE CLARITY CLEAR; URINE COLOR YELLOW; URINE GLUCOSE-RANDOM* NEGATIVE (Negative); URINE KETONES NEGATIVE (Negative); URINE NITRITE-REFLEX NEGATIVE (Negative); URINE PROTEIN (DIPSTICK) NEGATIVE (Negative); URINE UROBILINOGEN 0.2 E.U./dl (0.2-1.0)
[2020-12-29 18:51] LABS: URINE LEUKOCYTES-REFLEX 1+ (Negative)
[2020-12-29 18:59] LABS: CASTS None Seen /LPF (None Seen); CRYSTALS None Seen /LPF (None Seen); SQUAMOUS 0-3 Few /LPF (0-3); URINE RBC None Seen /HPF (NONE SEEN); URINE WBC-REFLEX 6-15 Few /HPF (0-5)
[2020-12-29 19:36] VITALS: BP 131/66
[2020-12-29 20:03] VITALS: BP 147/69
[2020-12-29 20:29] VITALS: BP 135/77
--- NOTE | 2020-12-30 04:03 | NUR ---
ADMIT PT ADMITTED TO ROOM 360 FROM ED BEING ADMITTED WITH SEPSIS AND A UTI. PT A/O X 4 UP WITH SBA. VSS, TELE INTACT READING SR IN THE 70'S. TO CT FOR CT OF ABDOMEN VIA W/C. IV TO LF INFUSING NS@100CC/HR WITHOUT DIFFICULTY. IV ZOSYN GIVEN IVPB ORDERED. PT ORIENTED TO ROOM CALL LIGHT SYSTME AND POC R/V UNDERSTANDING.
[2020-12-30 04:45] VITALS: BP 120/70
[2020-12-30 05:05] LABS: HEMATOCRIT 39.2 % (42.0-52.0); HEMOGLOBIN 13.4 gm/dL (14.0-18.0); MCH 32.7 pg (26.0-34.0); MCHC 34.1 g/dL (28.0-37.0); MCV 95.9 fL (80.0-100.0); RBC 4.09 mil/uL (4.50-6.00); RDW 13.1 % (10.5-14.5); WBC 12.1 thou/uL (4.0-11.0)
[2020-12-30 05:24] LABS: CALCIUM 8.5 mg/dL (8.5-10.1); CREATININE 1.2 mg/dL (0.7-1.3); POTASSIUM 3.7 mmol/L (3.5-5.1)
--- NOTE | 2020-12-30 07:24 | EKG ---
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1935 Requested By: Jose Starks Order Number: [id number] MD: Jamison Caballero Measurements Intervals [place] Rate: 71 P: 27 ME: 167 QRS: -19 QRSD: 88 T: 32 QT: 395 QTc: 430 Interpretive Statements Sinus rhythm Borderline left axis deviation Baseline wander in lead(s) V2,V3,V4 Compared to ECG 11/23/2020 13:39:13 No significant changes Electronically Signed On 12-30-2020 7:23:50 CDT by Jamison Caballero [email or web address] <ELECTRONICALLY SIGNED> By: Jamison Caballero MD, [facility] 12/30/20722 1800 1800 Jamison Caballero MD, [facility] /EPI
[2020-12-30 07:29] VITALS: BP 142/75
--- NOTE | 2020-12-30 09:49 | NUR ---
PT LIVES AT HOME WITH HIS SPOUSE. PT STATED HE IS ACTIVE AND INDEPENDENT WITH ADLS. PT STATED HE WALKS 3MI/DAILY. PT INDICATED HE USES NO DMES. PT PCP IS LIZBETH FREEMAN. PT DENIES HX WITH SNF OR HH. CM TO CONT TO FOLLOW.
[2020-12-30 15:31] VITALS: BP 153/71
[2020-12-30 19:34] VITALS: BP 173/80
[2020-12-31 00:06] LABS: GLYCOHEMOGLOBIN (HGB A1C) 6.2 % (4.8-5.6)
[2020-12-31 02:59] VITALS: BP 170/80
--- NOTE | 2020-12-31 04:29 | NUR ---
PROGRESS PT A/O X4, LUNGS CLEAR, ABDOMEN SOFT WITH ACTIVE BS. VOIDS PER URINAL WITH ADEQUATE OUTPUT. IVF'S CONTINUE, ANTIBIOTICS ADMINISTERED ORDERED. PT DENIES PAIN TELE INTACT READING SR CONTINUE POC.
[2020-12-31 08:00] VITALS: BP 151/71
[2020-12-31] MEDS ORDERED: AUGMENTIN 875-1 EACH PO (10:15)
[2020-12-31] MEDS ORDERED: PULMICORT0.5 MG/21 INH (10:55)
--- NOTE | 2020-12-31 12:16 | NUR ---
ON-GOING ASSESSMENT: CM REVIEWED CHART. PT WAS WORKING WITH THERAPY AND HAS PROGRESSED. PT WALKED 500FT WITH NO DEVICE. PT DOES NOT HAVE A NEED FOR ACUTE REHAB AT THIS TIME. PT HAS ORDERS TO DISCHARGE HOME WITH NO NEEDS. CASE CLOSED.
[2020-12-31 14:52] VITALS: BP 151/71
[2020-12-31 15:14] VITALS: BP 164/74
--- NOTE | 2020-12-31 16:00 | NUR ---
D/C INSTRUCTION AND NEW MED INFORMATION GIVEN TO PT AND HIS . THEY BOTH STATED THEIR UNDERSTANDING. IV AND TELE D/C. PT TAKNE DOWN VIA WHEELCHAIR.
[2021-01-02] MEDS ORDERED: PULMICORT0.5 MG/21 INH (11:38)
== END 2020-12-31 16:11 | disposition home or self-care (01) | DRG 871 ==
LOC: ER 17:08 → EROBS 19:21 → 3W 19:21 → 2N 19:57 → 3W 20:03
PROVIDERS: Nurse Practitioner Family; Physician Assistant; ADMIT Hospitalist; ATTEND Hospitalist
DX: A41.9 Sepsis, unspecified organism (principal); N17.0 Acute kidney failure with tubular necrosis; N39.0 Urinary tract infection, site not specified; J84.9 Interstitial pulmonary disease, unspecified; Z20.822 Contact with and (suspected) exposure to COVID-19; M19.041 Primary osteoarthritis, right hand; R65.20 Severe sepsis without septic shock; Z66 Do not resuscitate; I25.10 Atherosclerotic heart disease of native coronary artery without angina pectoris; E78.5 Hyperlipidemia, unspecified; F03.90 Unspecified dementia, unspecified severity, without behavioral disturbance, psychotic disturbance, mood disturbance, and anxiety; E11.22 Type 2 diabetes mellitus with diabetic chronic kidney disease; E11.65 Type 2 diabetes mellitus with hyperglycemia; I12.9 Hypertensive chronic kidney disease with stage 1 through stage 4 chronic kidney disease, or unspecified chronic kidney disease; N18.2 Chronic kidney disease, stage 2 (mild); R53.81 Other malaise; E53.8 Deficiency of other specified B group vitamins; Z87.891 Personal history of nicotine dependence; Z90.49 Acquired absence of other specified parts of digestive tract; Z79.82 Long term (current) use of aspirin; Z79.899 Other long term (current) drug therapy
CPT/HCPCS: 10879

== ENCOUNTER → 2021-05-20 | Outpatient (CLI) | payer OTHER ==
[~2021-05-20] MED LIST changes: +PULMICORT0.5 MG/21 INH
== END ==
LOC: SJCVC 09:36
PROVIDERS: ATTEND Internal Medicine
DX: R94.31 Abnormal electrocardiogram [ECG] [EKG] (principal); I25.10 Atherosclerotic heart disease of native coronary artery without angina pectoris; I48.21 Permanent atrial fibrillation; I65.23 Occlusion and stenosis of bilateral carotid arteries; E78.5 Hyperlipidemia, unspecified; I10 Essential (primary) hypertension; E03.9 Hypothyroidism, unspecified; I48.20 Chronic atrial fibrillation, unspecified; I63.412 Cerebral infarction due to embolism of left middle cerebral artery; Z87.891 Personal history of nicotine dependence; Z88.2 Allergy status to sulfonamides; Z88.1 Allergy status to other antibiotic agents; Z79.899 Other long term (current) drug therapy; Z79.84 Long term (current) use of oral hypoglycemic drugs; Z79.82 Long term (current) use of aspirin; Z95.818 Presence of other cardiac implants and grafts

== ENCOUNTER → 2021-07-23 | Outpatient (CLI) | payer OTHER | LOC: CAT 10:12 | PROVIDERS: ATTEND Internal Medicine | DX: J84.112 Idiopathic pulmonary fibrosis (principal); Z20.822 Contact with and (suspected) exposure to COVID-19 ==